=== PATIENT | female | born 1935 | race Two or more races ===

== ENCOUNTER 2016-11-19 13:15 | Outpatient (CLI) | payer OTHER ==
--- NOTE | 2016-11-19 14:44 | Diagnostic Imaging Report ---
Head CT without intravenous contrast Indication: Fall, Comparison: None Technique: Axial images were obtained from the vertex to the skull base without IV contrast. Coronal reconstructions were made. Total DLP: 535, [id number] FINDINGS: Images of the brain obtained without contrast demonstrate left frontal and left temporal isodensity measuring 4 mm in greatest transverse dimension. Atrophy is noted. No acute hemorrhage is identified. Moderate white matter disease is noted. The ventricles and basal cisterns are patent. No mass effect or midline shift. No evidence of a skull fracture or focal soft tissue swelling. The visualized paranasal sinuses are clear. IMPRESSION: Faint left frontal and left temporal isodensity measuring 4 mm in greatest transverse dimension. Although, findings may be due to volume averaging, a small subacute to chronic subdural hemorrhage cannot be excluded. MRI would provide additional detail and assessment. Otherwise no evidence of acute hemorrhage. No evidence of mass effect. Atrophy. Mild supratentorial white matter disease which is nonspecific and may be due to chronic microvessel ischemia. Atherosclerotic vascular disease. ER doctor was informed of the findings on 11/19/2016 at 2:40 PM.
== END 2016-11-19 14:00 | disposition home or self-care (01) ==
LOC: RAD 13:15
PROVIDERS: ATTEND Emergency Medicine
DX: S09.90XA Unspecified injury of head, initial encounter (principal); R51 Headache; R42 Dizziness and giddiness; X58.XXXA Exposure to other specified factors, initial encounter; Y93.89 Activity, other specified; Y92.89 Other specified places as the place of occurrence of the external cause; Y99.8 Other external cause status
CPT/HCPCS: 70450-TC